=== PATIENT | male | born 1950 | race Caucasian/White ===

== ENCOUNTER 2018-07-19 15:07 | Outpatient (CLI) | payer MEDICARE ==
--- NOTE | 2018-07-19 21:56 | Ultrasound Report ---
Reason: PAIN IN RIGHT LOWER LEG Procedure Date: 07/19/2018 Accession Number: [id number] / [id number] Procedure: US - Duplex Ext Veins Right CPT Code: FULL RESULT: EXAM: RIGHT LOWER EXTREMITY VENOUS ULTRASOUND EXAM DATE: 07/19/2018 04:24 PM. CLINICAL HISTORY: PAIN IN RIGHT LOWER LEG. COMPARISON: None. TECHNIQUE: Real-time sonographic vascular imaging was performed by the corporate manager through the lower extremity utilizing both color-flow and Doppler spectral analysis. Multiple telesales representative static images were saved for review. FINDINGS: Common Femoral Vein (CFV): Normal. CFV-GSV Junction: Normal. Profunda Femoral Vein (PFV): Normal. Femoral Vein (FV) Prox: Normal. Femoral Vein (FV) Mid: Normal. Femoral Vein (FV) Dist: Normal. Popliteal Vein: Normal. Posterior Tibial Veins: Normal. Peroneal Veins: Normal. Other: None. IMPRESSION: Negative for deep venous thrombosis in the right lower extremity RADIA
== END 2018-07-19 15:08 | disposition home or self-care (01) ==
LOC: DI 15:07
PROVIDERS: ATTEND Internal Medicine
DX: M79.661 Pain in right lower leg (principal)

== ENCOUNTER 2020-06-06 16:50 | Outpatient (CLI) | payer OTHER ==
--- NOTE | 2020-06-06 17:49 | Ultrasound Report ---
PROCEDURE: Duplex Ext Veins Right INDICATIONS: PITTING EDEMA TECHNIQUE: Real-time imaging, as well as color and pulse Doppler interrogation, were performed of the lower extr emity deep veins from the inguinal ligament to the popliteal fossa. COMPARISON: None. FINDINGS: Occlusive thrombus noted in the right common femoral vein, right superficial femoral vein, and the veins of the right calf. IMPRESSION: Abnormal study demonstrating extensive deep vein thrombosis involving the right lower ext remity. Reviewed by: Irlanda Chapman MD, PhD on 06/06/2020 5:48 PM PST Approved by: Irlanda Chapman MD, PhD on 06/06/2020 5:48 PM PST Station ID: [id number]
== END 2020-06-06 16:51 | disposition home or self-care (01) ==
LOC: DI 16:50
PROVIDERS: ATTEND Nurse Practitioner Family
DX: I82.411 Acute embolism and thrombosis of right femoral vein (principal); I82.4Z1 Acute embolism and thrombosis of unspecified deep veins of right distal lower extremity

== ENCOUNTER 2020-06-06 17:46 | Emergency (ER) | payer OTHER ==
[2020-06-06 18:51] LABS: BASOPHILS % (AUTO) 0.3 %; EOSINOPHILS # (AUTO) 0.4 10^3/uL (0.0-0.7); EOSINOPHILS % (AUTO) 5.4 %; HGB - HEMOGLOBIN 12.5 g/dL (14.0-18.0); LYMPHOCYTES # (AUTO) 1.1 10^3/uL (1.5-3.5); LYMPHOCYTES % (AUTO) 17.2 %; MEAN CORPUSCULAR HEMOGLOBIN 30.6 pg (27.0-31.0); MEAN CORPUSCULAR HGB CONC 33.2 g/dL (32.0-36.0); MEAN CORPUSCULAR VOLUME 92.4 fL (80.0-94.0); MEAN PLATELET VOLUME 9.9 fL (7.4-11.4); MONOCYTES # (AUTO) 0.6 10^3/uL (0.0-1.0); MONOCYTES % (AUTO) 8.3 %; NEUTROPHILS # (AUTO) 4.5 10^3/uL (1.5-6.6); NEUTROPHILS % (AUTO) 68.6 %; PLT - PLATELET COUNT 205 10^3/uL (130-450); RED BLOOD COUNT 4.08 10^6/uL (4.70-6.10); RED CELL DISTRIBUTION WIDTH 14.1 % (12.0-15.0); WHITE BLOOD COUNT 6.6 x10^3/uL (4.8-10.8)
[2020-06-06 18:55] LABS: ALBUMIN 3.6 g/dL (3.2-5.5); ALBUMIN/GLOBULIN RATIO 0.7 (1.0-2.2); BILIRUBIN,TOTAL 0.7 mg/dL (0.2-1.0); CREATININE 0.7 mg/dL (0.6-1.2)
[2020-06-06 19:06] LABS: INR 1.2 (0.8-1.2); PT - PROTHROMBIN TIME 13.7 secs (9.9-12.6)
[2020-06-06] MEDS ORDERED: ENOXAPARIN 100 MG/ML SYRINGE SUBQ STA (19:37)
--- NOTE | 2020-06-06 19:39 | ED Physician Documentation ---
History of Present Illness - Stated complaint Stated Complaint: BLOOD CLOT RT LEG - Chief complaint Chief Complaint: Ext Problem - History obtained from History obtained from: Patient - Additonal information Additional information: 69-year-old man with history of CIDP, with limited ambulation at baseline, home health aide, presents with right leg swelling over the past couple days that was found to have a DVT on outpatient ultrasound. Patient states that he always has pain in his legs and that it is unchanged today. Denies any change in sensation, though he always has decreased sensation. Denies chest pain, shortness of breath, cough or hemoptysis. Review of Systems Ten Systems: 10 systems reviewed and negative Constitutional: denies: Fever, Chills Cardiac: denies: Chest pain / pressure Respiratory: denies: Dyspnea, Cough Musculoskeletal: reports: Extremity swelling PD PAST MEDICAL HISTORY - Past Medical History Past Medical History: Yes Cardiovascular: None Respiratory: None Neuro: Other Endocrine/Autoimmune: Type 2 diabetes GI: None : None HEENT: None Musculoskeletal: None Derm: None Other Past Medical History: CIDP (CHRONIC INFLAMMATORY DISEASE).. - Past Surgical History Past Surgical History: Yes General: Bowel surgery HEENT: Cataracts - Present Medications Home Medications: Ambulatory Orders Medication Instructions Recorded Confirmed Apixaban [Eliquis] 5 mg PO BID 30 Days #60 tablet 06/06/20 Apixaban [Eliquis] 10 mg PO BID 7 Days #14 tablet 06/06/20 - Allergies Allergies/Adverse Reactions: Allergies Allergy/AdvReac Type Severity Reaction Status Date / Time Penicillins Allergy Rash Verified 06/06/20 17:59 - Social History Does the pt smoke?: No Smoking Status: Never smoker Does the pt drink ETOH?: No Does the pt have substance abuse?: No - Immunizations Immunizations are current?: Yes - POLST Patient has POLST: No PD ED PE NORMAL - Vitals Vital signs reviewed: Yes - General General: Alert and oriented X 3 - HEENT HEENT: Atraumatic, PERRL, EOMI - Neck Neck: Supple, no meningeal sign - Cardiac Cardiac: RRR - Respiratory Respiratory: No respiratory distress, Clear bilaterally - Abdomen Abdomen: Non tender, Non distended - Male Male : Deferred - Rectal Rectal: Deferred - Back Back: No CVA TTP - Derm Derm: Normal color, Warm and dry - Extremities Extremities: No deformity, Other (R calf swelling and mild erythema compared to left. 2+PT and DP pulses palpable) - Neuro Neuro: Alert and oriented X 3 - Psych Psych: Normal mood, Normal affect Results - Vitals Vitals: Vital Signs - 24 hr 06/06/20 06/06/20 06/06/20 17:53 19:10 19:14 Temperature 37.3 C 36.8 C Heart Rate 90 87 Respiratory 16 16 18 Rate Blood Pressure 152/65 H 136/71 H O2 Saturation 99 100 Oxygen O2 Source Room air - Labs Labs: Laboratory Tests 06/06/20 06/06/20 06/06/20 18:38 18:38 18:38 WBC 6.6 RBC 4.08 L Hgb 12.5 L Hct 37.7 L MCV 92.4 MCH 30.6 MCHC 33.2 RDW 14.1 Plt Count 205 MPV 9.9 Neut # (Auto) 4.5 Lymph # (Auto) 1.1 L [place] # (Auto) 0.6 Eos # (Auto) 0.4 Baso # (Auto) 0.0 Absolute Nucleated RBC 0.00 Nucleated RBC % 0.0 PT 13.7 H INR 1.2 Sodium 135 Potassium 3.9 Chloride 103 Carbon Dioxide 24 Anion Gap 8.0 BUN 15 Creatinine 0.7 Estimated GFR (MDRD) 112 Glucose 104 H Calcium 9.0 Total Bilirubin 0.7 AST 16 ALT 23 Alkaline Phosphatase 54 Total Protein 9.0 H Albumin 3.6 Globulin 5.4 H Albumin/Globulin Ratio 0.7 L Lipase 28 PD MEDICAL DECISION MAKING - ED course Complexity details: reviewed results, re-evaluated patient, d/w patient ED course: 69-year-old man with right common femoral, superficial femoral and right calf DVT without signs of PE. This was a provoked DVT given that he has decreased ambulatory status and is mostly wheelchair-bound. No phlegmasia cerulea dolens. normal distal pulse. He does not have a history of bleeding, has normal renal function, is compliant therefore is a good candidate for outpatient therapy. Strict return precautions were given. Shared decision to allow him to go home rather than admitting for IV anticoagulation. Patient understands that he will need to follow-up with his primary doctor this week. Departure - Departure Disposition: 01 Home, Self Care Clinical Impression: DVT (deep venous thrombosis) Condition: Good Instructions: Apixaban oral tablets, DVT Prescriptions: Apixaban [Eliquis] 10 mg PO BID 7 Days #14 tablet Apixaban [Eliquis] 5 mg PO BID 30 Days #60 tablet Comments: You have been seen in the emergency department for an extensive DVT from the common femoral vein all the way down to your calf. You were given a Lovenox shot in the ED and now you need to take Eliquis, an anticoagulant to dissolve the clot. return to the ed if your symptoms worsen or new symptoms arise such as chest pain or shortness of breath. You should follow-up with your doctor this week.
[2020-06-06 20:04] VITALS: BP 149/83
== END 2020-06-06 20:09 | disposition home or self-care (01) ==
LOC: ED 17:46
DX: I82.411 Acute embolism and thrombosis of right femoral vein (principal); E11.43 Type 2 diabetes mellitus with diabetic autonomic (poly)neuropathy; Z79.01 Long term (current) use of anticoagulants
CPT/HCPCS: 36415; 80053; 83690; 85025; 85610; 96372; 99283; 99284; J1650

== ENCOUNTER 2020-08-20 12:21 | Outpatient (CLI) | payer OTHER ==
--- NOTE | 2020-08-21 03:32 | Ultrasound Report ---
PROCEDURE: Duplex Ext Veins Right INDICATIONS: DVT OF LOWER LIMB TECHNIQUE: Real-time imaging, as well as color and pulse Doppler interrogation, were performed of the lower extr emity deep veins from the inguinal ligament to the popliteal fossa. COMPARISON: 06/06/2020 FINDINGS: Veins of the calf are not well seen. There is partially occlusive intraluminal thrombus in the right common femoral vein. The remainder of the superficial and deep femoral veins are widely pa tent with no evidence of intraluminal thrombus and good compressibility. IMPRESSION: Partially occlusive thrombus in the right common femoral vein. Overall, markedly decreas ed burden of deep venous thrombosis and compared with the prior study. Reviewed by: Eduar Viera MD on 08/20/2020 4:30 PM PST Approved by: Eduar Viera MD on 08/20/2020 4:30 PM PST Station ID: [id number]
== END 2020-08-20 12:22 | disposition home or self-care (01) ==
LOC: DI 12:21
PROVIDERS: ATTEND Nurse Practitioner Family
DX: I82.411 Acute embolism and thrombosis of right femoral vein (principal)

== ENCOUNTER 2020-11-23 10:03 | Outpatient (CLI) | payer OTHER ==
--- NOTE | 2020-11-23 13:59 | Ultrasound Report ---
PROCEDURE: Duplex Ext Veins Right INDICATIONS: DVT LOWER LIMB TECHNIQUE: Real-time imaging, as well as color and pulse Doppler interrogation, were performed of the lower extr emity deep veins from the inguinal ligament to the popliteal fossa. COMPARISON: 08/20/2020 and 06/06/2020. FINDINGS: There is a eccentric, chronic appearing, nonocclusive thrombus noted in the proximal right common femoral vein. This continues to be less conspicuous compared to prior study. The remainder of the visualized deep veins are normally compressible, and free of intraluminal thrombus. Color and p ulse Doppler demonstrate normal phasic intraluminal flow. There is normal augmentation response to d istal compression maneuver. The calf veins were not well visualized secondary to adjacent soft tissu e edema. IMPRESSION: Chronic appearing, nonocclusive fibrotic thrombus in the proximal right common femoral vein compatibl e with continued evolution of known deep venous thrombosis. No evidence for acute deep venous thrombo sis. Reviewed by: Juan Kirby MD on 11/23/2020 1:58 PM PDT Approved by: Juan Kirby MD on 11/23/2020 1:58 PM PDT Station ID: [id number]
== END 2020-11-23 10:04 | disposition home or self-care (01) ==
LOC: DI 10:03
PROVIDERS: ATTEND Nurse Practitioner Family
DX: I82.511 Chronic embolism and thrombosis of right femoral vein (principal)

== ENCOUNTER 2022-04-28 10:51 | Outpatient (CLI) | payer OTHER ==
--- NOTE | 2022-04-28 11:52 | Ultrasound Report ---
PROCEDURE: Pelvic Limited or F/U INDICATIONS: RIGHT INGUINAL PAIN TECHNIQUE: Real-time transabdominal scanning was performed of the pelvic organs, with image documentation. COMPARISON: None. FINDINGS/IMPRESSION: No RIGHT inguinal hernia is identified sonographically. Status post inguinal hernia repair. Reviewed by: Kalpesh Medrano MD on 04/28/2022 11:50 AM [facility] Approved by: Kalpesh Medrano MD on 04/28/2022 11:50 AM [facility] Station ID: [id number]
== END 2022-04-28 10:52 | disposition home or self-care (01) ==
LOC: DI 10:51
PROVIDERS: ATTEND Nurse Practitioner Family
DX: R10.31 Right lower quadrant pain (principal)